=== PATIENT | male | born 1955 | race African-American/Black ===

== ENCOUNTER 2017-01-31 14:22 | Outpatient (CLI) | payer OTHER ==
--- NOTE | 2017-01-31 16:38 | Diagnostic Imaging Report ---
Indications: Right ankle and foot injury, pain Technique: 3 views right ankle, 3 views right foot. Findings: Comparison: None Anterior and bilateral ankle soft tissues are swollen, latter more so laterally. No fracture, dislocation, joint space widening , additional foci of soft tissue swelling, soft tissue foreign body/gas, or other acute changes are identified. IMPRESSION: Ankle soft tissue swelling. Consider ligamentous injury. No other evidence of acute injury to the right ankle or right foot..
== END 2017-01-31 16:22 | disposition home or self-care (01) ==
LOC: RAD 14:22
DX: S82.891A Other fracture of right lower leg, initial encounter for closed fracture (principal); X58.XXXA Exposure to other specified factors, initial encounter; Y93.9 Activity, unspecified; Y92.9 Unspecified place or not applicable